=== PATIENT | male | born 1950 | race Caucasian/White ===

== ENCOUNTER 2019-10-09 20:35 | Emergency (ER) | payer OTHER, MEDICAID ==
[~2019-10-09] VITALS: Ht 177.8 cm; Wt 84.8 kg
[2019-10-09 20:35] VITALS: BP_SYST 89
[2019-10-09] MEDS ORDERED: ROCURONIUM BROMIDE 10 MG/ML (ZEMURON) IV ONE ×2 (20:36→21:45)
[2019-10-09] MEDS ORDERED: EPINEPHrine JECT 0.1 MG/ML SYR IVP ONE (20:36)
[2019-10-09] MEDS ORDERED: ETOMIDATE 20 MG/ 10 ML VIAL (AMIDATE) IVP ONE ×2 (20:36→21:45)
[2019-10-09] MEDS ORDERED: SODIUM BICARBONATE 8.4% JECT 50 MEQ/50 ML SYRINGE IVP ONE (20:36)
[2019-10-09] MEDS ORDERED: CALCIUM CHLORIDE 1 GM/10 ML DISP.SYRIN (14 mEq Ca++/SYR) IV ONE (20:36)
--- NOTE | 2019-10-09 20:45 | NUR ---
RT NOTES 2044 PT CAME IN TO ER 7, BROUGHT BY EMS. START BAGGING PT 02 15LPM BVM. INTUBATED (7.5/24LL), 2099 PATIENT STARTED TO BE BRADYCARDIC AND STARTED CODING. BAGGED PT 15LPM BVM. 2119 PRONOUNCED TIME OF .
--- NOTE | 2019-10-09 20:45 | NUR ---
Patient to ER bed 7 to gown for evaluation. Side rails up, place patient on panel monitor.
--- NOTE | 2019-10-09 20:45 | NUR ---
RT, In-charge nurse, and Dr. Anna at bedside for started intubation.
--- NOTE | 2019-10-09 20:45 | NUR ---
Pt brought in by JAZZY ESQUIVEL 187 for respiratory distress. As reported by EMS, pt has increased difficulty breathing at [facility] ([facility]) and was transported. Pt reportedly had approx 84% spo2 on 15lpm mask, upon arrival to ED, pt began to further degrade and needed assistance with BVM while unloading/giving report. Pt brought to ED isolation bed 7 due to possible covid infection, for safety of other ED patients and staff . Respiratory team, ED physician, ACLS RN's bedside assisting with intubation. It was reported by EMS that patient had tested positive for Coronavirus-19 approx 17 days ago, was recently taken from isolation and placed into general population. Unknow if patient still has active Covid19 infection.
--- NOTE | 2019-10-09 20:45 | NUR ---
Placed in room 07 . Placed on athletic monitor, blood pressure machine and pulse oximeter. To gown for exam. Side rails up.
--- NOTE | 2019-10-09 20:50 | NUR ---
Started I/O right lower knee by Dr. Anna.
--- NOTE | 2019-10-09 20:53 | NUR ---
20mg Etomidate and 100mg Rocuronium Given Via I/O site to facilitate intubation per 's verbal order.
--- NOTE | 2019-10-09 20:54 | NUR ---
Pt intubated by . single attempt. 7.5ETT/24cm
--- NOTE | 2019-10-09 21:00 | NUR ---
EPI #1 Given VIA IO Site
--- NOTE | 2019-10-09 21:04 | NUR ---
EPI #2 Given VIA IO Site
--- NOTE | 2019-10-09 21:04 | NUR ---
Pulse Check - No Pulses
--- NOTE | 2019-10-09 21:06 | NUR ---
Blood Sugar Obtained 149mg/dl
--- NOTE | 2019-10-09 21:08 | NUR ---
EPI #3 Given VIA IO Site
--- NOTE | 2019-10-09 21:08 | NUR ---
Pulse Check - No Pulses
--- NOTE | 2019-10-09 21:10 | NUR ---
1 AMP Calcium Chloride and 1 AMP Sodium Bicarb Given - Pulse Check - No Pulses/No organized rythm
--- NOTE | 2019-10-09 21:12 | NUR ---
EPI #4 Given VIA IO Site, Pulse Check - No Pulses
--- NOTE | 2019-10-09 21:16 | NUR ---
EPI #5 Given VIA IO Site
[2019-10-09] MEDS ORDERED: LORazepam 2 MG/ML VIAL ONE (21:17)
--- NOTE | 2019-10-09 21:17 | NUR ---
Pulse Check - No Pulses/no organized cardiac rythm
--- NOTE | 2019-10-09 21:20 | NUR ---
Pulse Check - No Pulses/No Organized cardiac rythm. No signs of ROSC, Return of spontaneous respirations.
--- NOTE | 2019-10-09 21:21 | NUR ---
CPR resumed after each pulse check as per policy. Medications given I/O in accordance with 's orders. Sustained CPR with no return of rosc or organized cardiac rythm/pulse for greater than 20 minutes.
[2019-10-09 21:25] VITALS: BP_SYST 0
[2019-10-09] MEDS ORDERED: LORazepam 2 MG/ML VIAL IVP ONE (21:45)
--- NOTE | 2019-10-09 21:50 | NUR ---
Spoke to MARLENE at [facility]. Per Marlene, pt had tested positive for Covid19, had been isolated for 16 days, and was removed from isolation approx 2 days ago. Marlene denies knowledge of negative Covid test. She states that patient had acute change in respiratory status, becoming distressed and tachycardic before the facility called 911. gave me information for next of kin, stated that she will send over a copy of facesheet. Seven Parra Addendum: 10/09/19 at 2249 by [email or web address] Spoke to MARLENE at [facility]. Per Marlene, pt had tested positive for Covid19, had been isolated for 16 days, and was removed from isolation approx 2 days ago. Marlene denies knowledge of negative Covid test. She states that patient had acute change in respiratory status, becoming distressed and tachycardic before the facility called 911. gave me information for next of kin, stated that she will send over a copy of facesheet. Micaela Parra Micaela Hopkins
--- NOTE | 2019-10-09 22:00 | NUR ---
nicola Durham supv. Spoke with [facility] regarding patient. They stated that they will not be pursuing the patient remains, and body/remains may be released to family or mortuary of families choice.
--- NOTE | 2019-10-09 22:25 | NUR ---
S/W son, Fidel Fontana. Informed of . Questions answered.
--- NOTE | 2019-10-09 22:30 | NUR ---
[facility]KE WITH [facility]". SHE STATES THAT WOOD PATTERN[employer]KER WILL NOT BE TAKING THIS A CASE. PT BODY/REMAINS MAY BE RELEASED TO FAMILY OR MORTUARY OF CHOICE.
--- NOTE | 2019-10-09 22:49 | NUR ---
S/W Dr. Mir Frost who is pt PMD. He stated he will sign the certificiate. Contact information: Office [phone] / fax [phone]
--- NOTE | 2019-10-09 23:15 | NUR ---
Postmortem care performed. Pt placed on clean linens, tubes and lines removed, pt body cleaned/hygeine performed. Body bag placed under patient. Identifying tags placed on patient, outside of body bag. Wristband placed on patient. head of patient supported by pillow.
--- NOTE | 2019-10-09 23:30 | NUR ---
Son of Patient Bedside viewing patient. N95 mask given to family of patient.
--- NOTE | 2019-10-10 00:54 | NUR ---
Son of the informed us that he will be providing mortuary information tomorrow morning. expressed his appreciation for the efforts to resuscitate his father. States he will go home and speak with the family regarding fathers .
--- NOTE | 2019-10-10 05:00 | NUR ---
Pt body moved to Body hold with assistance of Security wallpaper remover steam Krish.
--- NOTE | 2019-10-11 09:23 | NUR ---
Social Service Note: STEAM METER READER placed call to pt's son Fidel ([phone]); Fidel states that he has made arrangements with [facility] ([phone]). STEAM METER READER updated hospitality house supervisor; to have have speech pathology supervisor make arrangements for pt's seed cone picker.
== END 2019-10-10 05:00 | disposition expired ==
LOC: SED 20:35
DX: U07.1 COVID-19 (principal); I46.9 Cardiac arrest, cause unspecified
CPT/HCPCS: 31500; 82962; 92950; 96374; 96375; 99285; J0171; J2060; J3490